=== PATIENT | female | born 1950 | race African-American/Black ===

== ENCOUNTER 2016-08-21 00:36 | Emergency (ER) | payer MEDICARE ==
[~2016-08-21] VITALS: Ht 162.6 cm; Wt 113.4 kg
[2016-08-21 00:50] VITALS: BP 204/84
[2016-08-21] MEDS ORDERED: PRED50TA PO (01:14)
[2016-08-21] MEDS ORDERED: DIPH25CA58 PO (01:14)
--- NOTE | 2016-08-21 01:14 | PHYS DOC ---
Past Medical History Past Medical History: Diabetes-Type I, GERD, High Cholesterol, Hypertension Past Surgical History: Hysterectomy Alcohol Use: None Drug Use: None Adult General Chief Complaint Chief Complaint: INSECT BITE HPI HPI Patient is a 66 year old female who presents here today secondary to a rash to her right face and right upper extremities that she noticed this morning. She reports she went to the pharmacy and got hydrocortisone cream without significant improvement. Patient denies any other symptomatology. Patient has any fevers shakes chills nausea vomiting diarrhea chest patient's breath. Patient reports that the rash itches. No pain. No shortness of breath or wheezing. No difficult breathing. No airway, otherwise. Patient's physical exam is consistent with hives to her right forearm as well as right side of her face. No pustules. Gyri compromise. Lungs are clear. No wheezing rales or rhonchi. No stridor. Review of Systems Review of Systems Constitutional: Denies fever or chills [] Eyes: Denies change in visual acuity, redness, or eye pain [] All other review systems are negative except as documented in history of present illness portion. Allergies Allergies Allergies Coded Allergies Type Severity Reaction Last Updated Verified No Known Drug Allergies 04/17/15 No Physical Exam Physical Exam Constitutional: Well developed, well nourished, no acute distress, non-toxic appearance. [] HENT: Normocephalic, atraumatic, bilateral external ears normal, oropharynx moist, no oral exudates, nose normal. [] Eyes: PERRLA, EOMI, conjunctiva normal, no discharge. [] Neck: Normal range of motion, no tenderness, supple, no stridor. [] Cardiovascular:Heart rate regular rhythm, no murmur [] Lungs & Thorax: Bilateral breath sounds clear to auscultation [] Abdomen: Bowel sounds normal, soft, no tenderness, no masses, no pulsatile masses. [] Skin: above Extremities: No tenderness, no cyanosis, no clubbing, ROM intact, no edema. [] Neurologic: Alert and oriented X 3, normal motor function, normal sensory function, no focal deficits noted. [] Psychologic: Affect normal, judgement normal, mood normal. [] Current Patient Data Vital Signs Vital Signs Date Time Temp Pulse Resp B/P Pulse Ox O2 Delivery O2 Flow Rate FiO2 08/21/16 00:50 98.3 62 20 98 Room Air 98.3 EKG EKG [] Radiology/Procedures Radiology/Procedures [] Course & Med Decision Making Course & Med Decision Making Pertinent Labs and Imaging studies reviewed. (See chart for details) [] Dragon Disclaimer Dragon Disclaimer This electronic medical record was generated, in whole or in part, using a voice recognition dictation system. Departure Departure Impression: Primary Impression: Hives Disposition: HOME, SELF-CARE Condition: IMPROVED Referrals: UNKNOWN PCP NAME (PCP) Patient Instructions: Hives Scripts Prednisone 50 Mg Tablet1 Tab PO DAILY #5 TAB Prov:GOSIA MCGREGOR MD 08/21/16 Diphenhydramine Hcl (Benadryl)25 Mg Capsule2 Cap PO Q6HRS PRN ITCHING #14 CAP Ref 2 Prov:GOSIA MCGREGOR MD 08/21/16 GOSIA MCGREGOR MD Aug 21, 2016 01:14
[2016-08-21] MEDS ORDERED: DIPHENHYDRAMINE 50 MG/ML VIAL IM ONE (01:30)
[2016-08-21] MEDS ORDERED: PREDNISONE 20 MG TABLET PO ONE (01:30)
== END 2016-08-21 01:45 | disposition home or self-care (01) ==
LOC: ER 00:36
DX: L50.9 Urticaria, unspecified (principal); E10.9 Type 1 diabetes mellitus without complications; E78.00 Pure hypercholesterolemia, unspecified; I10 Essential (primary) hypertension
CPT/HCPCS: 96372; 99283; J1200; J7512

== ENCOUNTER 2017-03-21 22:49 | Inpatient (IN) | payer MEDICARE ==
[~2017-03-21] VITALS: Ht 160 cm; Wt 125.3 kg
[~2017-03-21 22:49] MED LIST: DIPH25CA58 PO; PRED50TA PO
[2017-03-21 23:39] LABS: BASO % 1 % (0-3); EOS % 2 % (0-3); HEMATOCRIT 35.9 % (36.0-47.0); HEMOGLOBIN 11.6 g/dL (12.0-15.5); LYMPH # 1.2 x10^3/uL (1.0-4.8); LYMPH % 12 % (24-48); MEAN CORPUSCULAR HEMOGLOBIN 30 pg (25-35); MEAN CORPUSCULAR HGB CONC 32 g/dL (31-37); MEAN CORPUSCULAR VOLUME 92 fL (79-100); MONO % 6 % (0-9); NEUT % 80 % (31-73); PLATELET COUNT 222 x10^3/uL (140-400); RED CELL DISTRIBUTION WIDTH 14.4 % (11.5-14.5); WHITE BLOOD COUNT 9.5 x10^3/uL (4.0-11.0)
[2017-03-21 23:40] LABS: BILIRUBIN,URINE NEGATIVE (NEG); GLUCOSE,URINE NEGATIVE (NEG); NITRITE,URINE NEGATIVE (NEG); PROTEIN,URINE NEGATIVE (NEG-TRACE)
[2017-03-21] MEDS ORDERED: ENALAPRILAT 1.25 MG/ML VIAL. IV ONE (23:45)
[2017-03-21] MEDS ORDERED: IV NORMAL SALINE 1000ML BAG 1,000 ML IV ONE (23:45)
[2017-03-21] MEDS ORDERED: MORPHINE SULFATE 4 MG/ML DISP.SYRIN. IV ONE (23:45)
[2017-03-21] MEDS ORDERED: ONDANSETRON PF 4 MG/2 ML VIAL. IV ONE (23:45)
[2017-03-21 23:51] LABS: BACTERIA,URINE FEW /HPF (0-FEW); SQUAMOUS EPITHELIAL CELL,UR FEW /LPF
[2017-03-21 23:51] LABS: CREATININE 1.1 mg/dL (0.6-1.0); GFR 59.8
[2017-03-21 23:56] LABS: ALBUMIN 3.4 g/dL (3.4-5.0); ALBUMIN/GLOBULIN RATIO 0.7 (1.0-1.7); TOTAL BILIRUBIN 0.2 mg/dL (0.2-1.0); TOTAL PROTEIN 8.4 g/dL (6.4-8.2)
--- NOTE | 2017-03-22 00:20 | RAD ---
CT abdomen and pelvis without contrast: Reason for examination: Severe lower abdominal pain and back pain tonight. Helical images were obtained through the abdomen and pelvis with no intravenous or oral contrast administered. Reconstruction was performed in sagittal and coronal planes. Exposure: One or more of the following individualized dose reduction techniques were utilized for this examination: 1. Automated exposure control 2. Adjustment of the mA and/or kV according to patient size 3. Use of iterative reconstruction technique. The lung bases are clear. The heart size appears to be normal with no pericardial effusion. No abnormality seen at the liver, pancreas, or adrenal glands. There are splenic granuloma. Small calcific densities consistent suggesting gallstones are seen in the gallbladder. The abdominal aorta and inferior vena cava show no acute abnormalities. The kidneys show a nonobstructing calculus at the lower pole of the left kidney. There is no evidence of hydronephrosis or obstructive uropathy. The intestinal tract shows no abnormally dilated loops of bowel or thickened bowel coppola no evidence of diverticulitis or diverticulosis. No abnormality seen at the bladder or vaginal cuff. There are phleboliths in the pelvis. No acute bony abnormalities are present but there are some degenerative changes in the spine. IMPRESSION: Cholelithiasis. Nonobstructing calculus at the lower pole of the left kidney but no evidence of hydronephrosis or obstructive uropathy. Electronically signed by: Betina Menendez MD (03/22/2017 12:17 AM) [facility]
--- NOTE | 2017-03-22 02:34 | PHYS DOC ---
Past Medical History Past Medical History: Arthritis, Diabetes-Type I, GERD, High Cholesterol, Hypertension, Other Additional Past Medical Histor: heart murmur Past Surgical History: Hysterectomy Alcohol Use: None Drug Use: None Adult General Chief Complaint Chief Complaint: ABDOMINAL PAIN HPI HPI Patient is a 66 year old female who presents with complaints of low abdominal pain and low back pain that started today in the afternoon. Patient denies any vomiting, diarrhea, fevers, chills, trauma. Patient also denies vaginal discharge, vaginal bleeding. Denies any dysuria. Patient states she's been feeling bloated. Patient denies any sick contacts, recent changes in medication , recent travel Review of Systems Review of Systems Constitutional: Denies fever or chills [] Eyes: Denies change in visual acuity, redness, or eye pain [] HENT: Denies throat or neck pain Respiratory: Denies cough or shortness of breath [] Cardiovascular: No is pain GI: Deniesnausea, vomiting, bloody stools or diarrhea. Yes to low abdominal pain : Denies dysuria or hematuria or vaginal bleeding or discharge Musculoskeletal: Denies joint pain . Yes to low back pain Integument: Denies rash or skin lesions [] Neurologic: Denies headache, focal weakness or sensory changes [] chintan [] Current Medications Current Medications Current Medications Medications (Trade) Dose Ordered Sig/[facility] Start Time Stop Time Status Last Admin Dose Admin Enalaprilat (Vasotec) 1.25 mg 1X ONCE 03/21/17 23:45 03/21/17 23:46 DC 03/21/17 23:57 1.25 MG Morphine Sulfate 6 mg 1X ONCE 03/21/17 23:45 03/21/17 23:46 DC 03/21/17 23:58 6 MG Ondansetron HCl (Zofran) 4 mg 1X ONCE 03/21/17 23:45 03/21/17 23:46 DC 03/21/17 23:58 4 MG Sodium Chloride 1,000 ml @ 1,000 mls/hr 1X ONCE 03/21/17 23:45 03/22/17 00:44 DC 03/21/17 23:57 1,000 MLS/HR Allergies Allergies Allergies Coded Allergies Type Severity Reaction Last Updated Verified No Known Drug Allergies 04/17/15 No Physical Exam Physical Exam Constitutional: Well developed, well nourished, mild distress, non-toxic appearance. [] HENT: Normocephalic, atraumatic,l, oropharynx moist, no oral exudates, nose normal. [] Eyes: EOMI, conjunctiva normal, no discharge. [] Neck: Normal range of motion, no tenderness, supple, no stridor. The JVD, no LAD Cardiovascular:Heart rate regular rhythm, no murmur, equal pulses, normal perfusion Lungs & Thorax: Bilateral breath sounds clear to auscultation, no tachypnea Abdomen: Bowel sounds normal, soft, no tenderness, no masses, no pulsatile masses. [] Skin: Warm, dry, no erythema, no rash. [] Back: Very mild tenderness to palpation low back, no CVA tenderness. No midline tenderness, no step-offs Extremities: No tenderness, no cyanosis, no clubbing, ROM intact, no edema. [] Neurologic: Alert and oriented X 3, normal motor function, normal sensory function, no focal deficits noted. [] Psychologic: Affect normal, judgement normal, mood normal. [] Current Patient Data Vital Signs Vital Signs Date Time Temp Pulse Resp B/P (MAP) Pulse Ox O2 Delivery O2 Flow Rate FiO2 03/22/17 02:16 58 191/81 (117) 95 03/21/17 23:00 98.5 24 Room Air 98.5 Lab Values Laboratory Tests Test 03/21/17 23:01 03/21/17 23:10 Urine Collection Type Unknown Urine Color Yellow Urine Clarity Clear Urine pH 6.0 Urine Specific [place] 1.025 Urine Protein Negative mg/dL (NEG-TRACE) Urine Glucose (UA) Negative mg/dL (NEG) Urine Ketones (Stick) Negative mg/dL (NEG) Urine Blood Negative (NEG) Urine Nitrite Negative (NEG) Urine Bilirubin Negative (NEG) Urine Urobilinogen Dipstick 1.0 mg/dL (0.2 mg/dL) Urine Leukocyte Esterase Moderate (NEG) Urine RBC 6-10 /HPF (0-2) Urine WBC 5-10 /HPF (0-4) Urine Squamous Epithelial Cells Few /LPF Urine Bacteria Few /HPF (0-FEW) White Blood Count 9.5 x10^3/uL (4.0-11.0) Red Blood Count 3.90 x10^6/uL (3.50-5.40) Hemoglobin 11.6 g/dL (12.0-15.5) L Hematocrit 35.9 % (36.0-47.0) L Mean Corpuscular Volume 92 fL (79-100) Mean Corpuscular Hemoglobin 30 pg (25-35) Mean Corpuscular Hemoglobin Concent 32 g/dL (31-37) Red Cell Distribution Width 14.4 % (11.5-14.5) Platelet Count 222 x10^3/uL (140-400) Neutrophils (%) (Auto) 80 % (31-73) H Lymphocytes (%) (Auto) 12 % (24-48) L Monocytes (%) (Auto) 6 % (0-9) Eosinophils (%) (Auto) 2 % (0-3) Basophils (%) (Auto) 1 % (0-3) Neutrophils # (Auto) 7.6 x10^3uL (1.8-7.7) Lymphocytes # (Auto) 1.2 x10^3/uL (1.0-4.8) Monocytes # (Auto) 0.5 x10^3/uL (0.0-1.1) Eosinophils # (Auto) 0.2 x10^3/uL (0.0-0.7) Basophils # (Auto) 0.0 x10^3/uL (0.0-0.2) Sodium Level 144 mmol/L (136-145) Potassium Level 4.0 mmol/L (3.5-5.1) Chloride Level 106 mmol/L (98-107) Carbon Dioxide Level 29 mmol/L (21-32) Anion Gap 9 (6-14) Blood Urea Nitrogen 24 mg/dL (7-20) H Creatinine 1.1 mg/dL (0.6-1.0) H Estimated GFR (Cockcroft-Gault) 59.8 BUN/Creatinine Ratio 22 (6-20) H Glucose Level 153 mg/dL (70-99) H Calcium Level 9.0 mg/dL (8.5-10.1) Total Bilirubin 0.2 mg/dL (0.2-1.0) Aspartate Amino Transferase (AST) 17 U/L (15-37) Alanine Aminotransferase (ALT) 18 U/L (14-59) Alkaline Phosphatase 109 U/L (46-116) Total Protein 8.4 g/dL (6.4-8.2) H Albumin 3.4 g/dL (3.4-5.0) Albumin/Globulin Ratio 0.7 (1.0-1.7) L Laboratory Tests 03/21/17 23:10 Laboratory Tests 03/21/17 23:10 EKG EKG [] Radiology/Procedures Radiology/Procedures [] Course & Med Decision Making Course & Med Decision Making Pertinent Labs and Imaging studies reviewed. (See chart for details) 0347 pt states she has had some ruq pain in the past. [] Dragon Disclaimer Dragon Disclaimer This electronic medical record was generated, in whole or in part, using a voice recognition dictation system. Departure Departure Impression: Primary Impression: Abdominal pain Additional Impression: Cholecystitis Disposition: ADMITTED INPATIENT Admitting Physician: Taylor Michaud Referrals: UNKNOWN PCP NAME (PCP) Problem Qualifiers Deanna DARLING MD Mar 22, 2017 02:33
--- NOTE | 2017-03-22 03:09 | RAD ---
Abdominal ultrasound right upper quadrant: Reason for examination: Right upper quadrant pain. Abnormal CT. No abnormality seen in the region of the pancreas however somewhat obscured by bowel gas. No abnormality seen at the inferior vena cava. The liver is normal in size at 16.6 cm but shows fatty infiltration with no focal lesions. Gallbladder shows cholelithiasis and sludge and gallbladder wall thickening with the gallbladder wall measuring 4.7 mm in thickness. There is trace of pericholecystic fluid adjacent to the gallbladder. Common bile duct is not distended at 3.8 mm. Right kidney measures 10.6 x 4.9 x 4.6 cm in greatest dimension and shows normal cortical medullary differentiation and no hydronephrosis. IMPRESSION: Cholelithiasis and sludge in gallbladder with thickened wall and some pericholecystic fluid. These findings are consistent with acute cholecystitis. Fatty infiltration in the liver. Electronically signed by: Betina Menendez MD (03/22/2017 3:06 AM) [facility]
[2017-03-22] MEDS ORDERED: ONDANSETRON PF 4 MG/2 ML VIAL. IV PRN ×2 (04:00→11:30)
[2017-03-22] MEDS ORDERED: MORPHINE SULFATE 2 MG/ML DISP.SYRIN. IV PRN (04:00)
[2017-03-22] MEDS ORDERED: PIPERACILLIN/TAZOBACTAM 3.375 GM in IV NORMAL SALINE 50ML 50 ML IV ONE (04:30)
[2017-03-22] MEDS ORDERED: OXYB5TAB7 PO (05:04)
[2017-03-22] MEDS ORDERED: ESOM40CA PO (05:04)
[2017-03-22 05:39] VITALS: BP 161/59
[2017-03-22 07:00] VITALS: BP 147/66
[2017-03-22 11:00] VITALS: BP 151/56
[2017-03-22] MEDS ORDERED: DOCUSATE SODIUM 100 MG CAPSULE. PO PRN (11:30)
[2017-03-22] MEDS: PANTOPRAZOLE 40 MG TABLET.DR. PO SCH (11:30)
[2017-03-22] MEDS ORDERED: traMADol 50 MG TABLET PO PRN (11:30)
[2017-03-22] MEDS: OXYBUTYNIN CHLORIDE 5 MG TABLET PO SCH ×2 (12:00→21:00)
--- NOTE | 2017-03-22 14:21 | PDOC1 ---
History and Physical Date of Admission Date of Admission 03/22/17 Identification/Chief Complaint Chief Complaint abd pain Problems: Source Source: Chart review, Patient History of Present Illness History of Present Illness HPI HPI Patient is a 66 year old female who presents with complaints of low abdominal pain and low back pain since last night. Pt said never had similar pain before and no abd problem before. She started to have whole abd pain, moderate ,since last night, achy, intermittent, also has lower back pain, cannot tell me if the pain is radiating. no N/V, BM ok. no fever, chills, sob, chest pain, urinary problem ER ct SHOWED ACUTE alexis. Past Medical History Cardiovascular: HTN, Hyperlipidemia Endocrine: Diabetes Past Surgical History Past Surgical History: Hysterectomy Family History Family History: Hypertension Social History Smoke: No ALCOHOL: none Drugs: None Current Problem List Problem List Problems Medical Problems: (1) Abdominal pain Status: Acute (2) Cholecystitis Status: Acute Current Medications Current Medications Current Medications Medications (Trade) Dose Ordered Sig/Ling Start Time Stop Time Status Last Admin Dose Admin Acetaminophen (Tylenol) 650 mg PRN Q6HRS PRN 03/22/17 11:30 Docusate Sodium (Colace) 100 mg PRN DAILY PRN 03/22/17 11:30 Enalaprilat (Vasotec) 1.25 mg 1X ONCE 03/21/17 23:45 03/21/17 23:46 DC 03/21/17 23:57 1.25 MG Hydralazine HCl (Apresoline) 10 mg PRN Q4HRS PRN 03/22/17 11:30 Morphine Sulfate 2 mg PRN Q2HR PRN 03/22/17 11:30 Ondansetron HCl (Zofran) 4 mg PRN Q6HRS PRN 03/22/17 11:30 Oxybutynin Chloride (Ditropan) 5 mg BID 03/22/17 12:00 Pantoprazole Sodium (Protonix) 40 mg DAILYAC 03/22/17 11:30 Piperacillin Sod/ Tazobactam Sod 3.375 gm/Sodium Chloride 50 ml @ 100 mls/hr 1X ONCE 03/22/17 04:30 03/22/17 04:59 DC 03/22/17 04:11 100 MLS/HR Sodium Chloride 1,000 ml @ 1,000 mls/hr 1X ONCE 03/21/17 23:45 03/22/17 00:44 DC 03/21/17 23:57 1,000 MLS/HR Tramadol HCl (Ultram) 50 mg PRN Q6HRS PRN 03/22/17 11:30 Allergies Allergies Allergies Coded Allergies Type Severity Reaction Last Updated Verified No Known Drug Allergies 04/17/15 No ROS Review of System CONSTITUTIONAL: No fever or chills EYES: No recent changes SKIN: No rash or itching CARDIOVASCULAR: No chest pain, syncope, palpitations, or edema RESPIRATORY: No SOB or cough GASTROINTESTINAL: No nausea, vomiting or abdominal pain NEUROLOGICAL: No headaches or weakness ENDOCRINE: No cold or heat intolerance GENITOURINARY: No urgency or frequency of urination MUSCULOSKELETAL: No back pain or joint pain LYMPHATICS: No enlarged lymph nodes PSYCHIATRIC: No anxiety or depression Physical Exam Physical Exam GEN.: No apparent distress. Alert and oriented. HEENT: Head is normocephalic, atraumatic NECK: Supple. LUNGS: Clear to auscultation. HEART: RRR, S1, S2 present. Peripheral pulses intact ABDOMEN: Soft, Positive bowel sounds. RUQ and epigastric area mild tenderness. EXTREMITIES: Without any cyanosis. NEUROLOGIC: Normal speech, normal tone PSYCHIATRIC: Normal affect, normal mood. SKIN: No ulcerations Vitals Vitals Vital Signs Date Time Temp Pulse Resp B/P (MAP) Pulse Ox O2 Delivery O2 Flow Rate FiO2 03/22/17 11:00 97.9 55 18 151/56 (87) 96 Room Air 97.9 Labs Labs Laboratory Tests Test 03/21/17 23:01 03/21/17 23:10 03/22/17 07:48 03/22/17 10:32 Urine Collection Type Unknown Urine Color Yellow Urine Clarity Clear Urine pH 6.0 Urine Specific [place] 1.025 Urine Protein Negative mg/dL (NEG-TRACE) Urine Glucose (UA) Negative mg/dL (NEG) Urine Ketones (Stick) Negative mg/dL (NEG) Urine Blood Negative (NEG) Urine Nitrite Negative (NEG) Urine Bilirubin Negative (NEG) Urine Urobilinogen Dipstick 1.0 mg/dL (0.2 mg/dL) Urine Leukocyte Esterase Moderate (NEG) Urine RBC 6-10 /HPF (0-2) Urine WBC 5-10 /HPF (0-4) Urine Squamous Epithelial Cells Few /LPF Urine Bacteria Few /HPF (0-FEW) White Blood Count 9.5 x10^3/uL (4.0-11.0) Red Blood Count 3.90 x10^6/uL (3.50-5.40) Hemoglobin 11.6 g/dL (12.0-15.5) Hematocrit 35.9 % (36.0-47.0) Mean Corpuscular Volume 92 fL (79-100) Mean Corpuscular Hemoglobin 30 pg (25-35) Mean Corpuscular Hemoglobin Concent 32 g/dL (31-37) Red Cell Distribution Width 14.4 % (11.5-14.5) Platelet Count 222 x10^3/uL (140-400) Neutrophils (%) (Auto) 80 % (31-73) Lymphocytes (%) (Auto) 12 % (24-48) Monocytes (%) (Auto) 6 % (0-9) Eosinophils (%) (Auto) 2 % (0-3) Basophils (%) (Auto) 1 % (0-3) Neutrophils # (Auto) 7.6 x10^3uL (1.8-7.7) Lymphocytes # (Auto) 1.2 x10^3/uL (1.0-4.8) Monocytes # (Auto) 0.5 x10^3/uL (0.0-1.1) Eosinophils # (Auto) 0.2 x10^3/uL (0.0-0.7) Basophils # (Auto) 0.0 x10^3/uL (0.0-0.2) Sodium Level 144 mmol/L (136-145) Potassium Level 4.0 mmol/L (3.5-5.1) Chloride Level 106 mmol/L (98-107) Carbon Dioxide Level 29 mmol/L (21-32) Anion Gap 9 (6-14) Blood Urea Nitrogen 24 mg/dL (7-20) Creatinine 1.1 mg/dL (0.6-1.0) Estimated GFR (Cockcroft-Gault) 59.8 BUN/Creatinine Ratio 22 (6-20) Glucose Level 153 mg/dL (70-99) Calcium Level 9.0 mg/dL (8.5-10.1) Total Bilirubin 0.2 mg/dL (0.2-1.0) Aspartate Amino Transf (AST/SGOT) 17 U/L (15-37) Alanine Aminotransferase (ALT/SGPT) 18 U/L (14-59) Alkaline Phosphatase 109 U/L (46-116) Total Protein 8.4 g/dL (6.4-8.2) Albumin 3.4 g/dL (3.4-5.0) Albumin/Globulin Ratio 0.7 (1.0-1.7) Glucose (Fingerstick) 131 mg/dL (70-99) 97 mg/dL (70-99) Laboratory Tests Test 03/21/17 23:01 03/21/17 23:10 03/22/17 07:48 03/22/17 10:32 Urine Collection Type Unknown Urine Color Yellow Urine Clarity Clear Urine pH 6.0 Urine Specific [place] 1.025 Urine Protein Negative mg/dL (NEG-TRACE) Urine Glucose (UA) Negative mg/dL (NEG) Urine Ketones (Stick) Negative mg/dL (NEG) Urine Blood Negative (NEG) Urine Nitrite Negative (NEG) Urine Bilirubin Negative (NEG) Urine Urobilinogen Dipstick 1.0 mg/dL (0.2 mg/dL) Urine Leukocyte Esterase Moderate (NEG) Urine RBC 6-10 /HPF (0-2) Urine WBC 5-10 /HPF (0-4) Urine Squamous Epithelial Cells Few /LPF Urine Bacteria Few /HPF (0-FEW) White Blood Count 9.5 x10^3/uL (4.0-11.0) Red Blood Count 3.90 x10^6/uL (3.50-5.40) Hemoglobin 11.6 g/dL (12.0-15.5) Hematocrit 35.9 % (36.0-47.0) Mean Corpuscular Volume 92 fL (79-100) Mean Corpuscular Hemoglobin 30 pg (25-35) Mean Corpuscular Hemoglobin Concent 32 g/dL (31-37) Red Cell Distribution Width 14.4 % (11.5-14.5) Platelet Count 222 x10^3/uL (140-400) Neutrophils (%) (Auto) 80 % (31-73) Lymphocytes (%) (Auto) 12 % (24-48) Monocytes (%) (Auto) 6 % (0-9) Eosinophils (%) (Auto) 2 % (0-3) Basophils (%) (Auto) 1 % (0-3) Neutrophils # (Auto) 7.6 x10^3uL (1.8-7.7) Lymphocytes # (Auto) 1.2 x10^3/uL (1.0-4.8) Monocytes # (Auto) 0.5 x10^3/uL (0.0-1.1) Eosinophils # (Auto) 0.2 x10^3/uL (0.0-0.7) Basophils # (Auto) 0.0 x10^3/uL (0.0-0.2) Sodium Level 144 mmol/L (136-145) Potassium Level 4.0 mmol/L (3.5-5.1) Chloride Level 106 mmol/L (98-107) Carbon Dioxide Level 29 mmol/L (21-32) Anion Gap 9 (6-14) Blood Urea Nitrogen 24 mg/dL (7-20) Creatinine 1.1 mg/dL (0.6-1.0) Estimated GFR (Cockcroft-Gault) 59.8 BUN/Creatinine Ratio 22 (6-20) Glucose Level 153 mg/dL (70-99) Calcium Level 9.0 mg/dL (8.5-10.1) Total Bilirubin 0.2 mg/dL (0.2-1.0) Aspartate Amino Transf (AST/SGOT) 17 U/L (15-37) Alanine Aminotransferase (ALT/SGPT) 18 U/L (14-59) Alkaline Phosphatase 109 U/L (46-116) Total Protein 8.4 g/dL (6.4-8.2) Albumin 3.4 g/dL (3.4-5.0) Albumin/Globulin Ratio 0.7 (1.0-1.7) Glucose (Fingerstick) 131 mg/dL (70-99) 97 mg/dL (70-99) VTE Prophylaxis Ordered VTE Prophylaxis Devices: Yes VTE Pharmacological Prophylaxi: No Assessment/Plan Assessment/Plan abd pain with acute cholecystitis htn hld dm2 OA gerd heart murmur, possible MR ckd3 plan: fu with sx, may need lap alexis npo for now ivf gi ppx ssi admit 2nights JULIAN CAR MD Mar 22, 2017 14:21
--- NOTE | 2017-03-22 14:22 | PDOC2 ---
CONSULT Date of Consult Date of Consult DATE: 03/22/17 TIME: 14:16 Reason for Consult Reason for Consult: RUQ abd pain, cholecystitis Referring Physician Referring Physician: Farooq Identification/Chief Complaint Chief Complaint RUQ pain Problems: Source Source: Chart review, Patient History of Present Illness Reason for Visit: 66 yo F with c/o RUQ abd pain beginning yesterday. Denies previous episode. Notes pain improved now. Past Medical History Cardiovascular: HTN, Hyperlipidemia, Other (murmur) GI: GERD Endocrine: Diabetes Past Surgical History Past Surgical History: Hysterectomy Family History Family History: No Significant Social History No Current Problem List Problem List Problems Medical Problems: (1) Abdominal pain Status: Acute (2) Cholecystitis Status: Acute Current Medications Current Medications Current Medications Morphine Sulfate 6 mg 1X ONCE IV Last administered on 03/21/17 23:58; Start 03/21/17 at 23:45; Stop 03/21/17 at 23:46; Status DC Ondansetron HCl (Zofran) 4 mg 1X ONCE IV Last administered on 03/21/17 23:58 ; Start 03/21/17 at 23:45; Stop 03/21/17 at 23:46; Status DC Sodium Chloride 1,000 ml @ 1,000 mls/hr 1X ONCE IV Last administered on 23:57; Start 03/21/17 at 23:45; Stop 03/22/17 at 00:44; Status DC Enalaprilat (Vasotec) 1.25 mg 1X ONCE IV Last administered on 03/21/17 23:57 ; Start 03/21/17 at 23:45; Stop 03/21/17 at 23:46; Status DC Piperacillin Sod/ Tazobactam Sod 3.375 gm/Sodium Chloride 50 ml @ 100 mls/hr 1X ONCE IV Last administered on 03/22/17 04:11; Start 03/22/17 at 04:30; Stop 03/22/17 at 04:59; Status DC Ondansetron HCl (Zofran) 4 mg PRN Q8HRS PRN IV NAUSEA/VOMITING Last administered on 03/22/17 04:57; Start 03/22/17 at 04:00; Stop 03/22/17 at 11:34 ; Status DC Morphine Sulfate 2 mg PRN Q2HR PRN IV SEVERE PAIN; Start 03/22/17 at 04:00; Stop 03/22/17 at 11:34; Status DC Oxybutynin Chloride (Ditropan) 5 mg BID PO ; Start 03/22/17 at 12:00 Pantoprazole Sodium (Protonix) 40 mg DAILYAC PO ; Start 03/22/17 at 11:30 Acetaminophen (Tylenol) 650 mg PRN Q6HRS PRN PO FEVER; Start 03/22/17 at 11:30 Ondansetron HCl (Zofran) 4 mg PRN Q6HRS PRN IV NAUSEA/VOMITING; Start 03/22/17 at 11:30 Morphine Sulfate 2 mg PRN Q2HR PRN IV PAIN; Start 03/22/17 at 11:30 Tramadol HCl (Ultram) 50 mg PRN Q6HRS PRN PO PAIN; Start 03/22/17 at 11:30 Hydralazine HCl (Apresoline) 10 mg PRN Q4HRS PRN IVP ELEVATED BP, SEE COMMENTS ; Start 03/22/17 at 11:30 Docusate Sodium (Colace) 100 mg PRN DAILY PRN PO CONSTIPATION; Start 03/22/17 at 11:30 Active Scripts Active Prednisone 50 Mg Tablet 1 Tab PO DAILY Benadryl (Diphenhydramine Hcl) 25 Mg Capsule 2 Cap PO Q6HRS PRN Reported Oxybutynin Chloride 5 Mg Tablet 5 Mg PO BID Nexium Capsule (Esomeprazole Magnesium) 40 Mg Capsule.dr 40 Mg PO DAILYAC Allergies Allergies: Coded Allergies: No Known Drug Allergies (Unverified , 04/17/15) ROS General: YES: Other (light headed and vertigo) Gastrointestinal: Yes Abdominal Pain Physical Exam General: Alert, Cooperative, No acute distress HEENT: Atraumatic, EOMI Lungs: Normal air movement Abdomen: Other (TTP RUQ, obese) Extremities: No clubbing, No cyanosis Neuro: Normal speech, Sensation intact Psych/Mental Status: Mental status NL, Mood NL MUSCULOSKELETAL: No joint tenderness, No deformity Vitals VITALS Vital Signs Date Time Temp Pulse Resp B/P (MAP) Pulse Ox O2 Delivery O2 Flow Rate FiO2 03/22/17 11:00 97.9 55 18 151/56 (87) 96 Room Air 97.9 Labs Labs Laboratory Tests Test 03/21/17 23:01 03/21/17 23:10 03/22/17 07:48 03/22/17 10:32 Urine Collection Type Unknown Urine Color Yellow Urine Clarity Clear Urine pH 6.0 Urine Specific [place] 1.025 Urine Protein Negative mg/dL (NEG-TRACE) Urine Glucose (UA) Negative mg/dL (NEG) Urine Ketones (Stick) Negative mg/dL (NEG) Urine Blood Negative (NEG) Urine Nitrite Negative (NEG) Urine Bilirubin Negative (NEG) Urine Urobilinogen Dipstick 1.0 mg/dL (0.2 mg/dL) Urine Leukocyte Esterase Moderate (NEG) Urine RBC 6-10 /HPF (0-2) Urine WBC 5-10 /HPF (0-4) Urine Squamous Epithelial Cells Few /LPF Urine Bacteria Few /HPF (0-FEW) White Blood Count 9.5 x10^3/uL (4.0-11.0) Red Blood Count 3.90 x10^6/uL (3.50-5.40) Hemoglobin 11.6 g/dL (12.0-15.5) Hematocrit 35.9 % (36.0-47.0) Mean Corpuscular Volume 92 fL (79-100) Mean Corpuscular Hemoglobin 30 pg (25-35) Mean Corpuscular Hemoglobin Concent 32 g/dL (31-37) Red Cell Distribution Width 14.4 % (11.5-14.5) Platelet Count 222 x10^3/uL (140-400) Neutrophils (%) (Auto) 80 % (31-73) Lymphocytes (%) (Auto) 12 % (24-48) Monocytes (%) (Auto) 6 % (0-9) Eosinophils (%) (Auto) 2 % (0-3) Basophils (%) (Auto) 1 % (0-3) Neutrophils # (Auto) 7.6 x10^3uL (1.8-7.7) Lymphocytes # (Auto) 1.2 x10^3/uL (1.0-4.8) Monocytes # (Auto) 0.5 x10^3/uL (0.0-1.1) Eosinophils # (Auto) 0.2 x10^3/uL (0.0-0.7) Basophils # (Auto) 0.0 x10^3/uL (0.0-0.2) Sodium Level 144 mmol/L (136-145) Potassium Level 4.0 mmol/L (3.5-5.1) Chloride Level 106 mmol/L (98-107) Carbon Dioxide Level 29 mmol/L (21-32) Anion Gap 9 (6-14) Blood Urea Nitrogen 24 mg/dL (7-20) Creatinine 1.1 mg/dL (0.6-1.0) Estimated GFR (Cockcroft-Gault) 59.8 BUN/Creatinine Ratio 22 (6-20) Glucose Level 153 mg/dL (70-99) Calcium Level 9.0 mg/dL (8.5-10.1) Total Bilirubin 0.2 mg/dL (0.2-1.0) Aspartate Amino Transf (AST/SGOT) 17 U/L (15-37) Alanine Aminotransferase (ALT/SGPT) 18 U/L (14-59) Alkaline Phosphatase 109 U/L (46-116) Total Protein 8.4 g/dL (6.4-8.2) Albumin 3.4 g/dL (3.4-5.0) Albumin/Globulin Ratio 0.7 (1.0-1.7) Glucose (Fingerstick) 131 mg/dL (70-99) 97 mg/dL (70-99) Laboratory Tests Test 03/21/17 23:01 03/21/17 23:10 03/22/17 07:48 03/22/17 10:32 Urine Collection Type Unknown Urine Color Yellow Urine Clarity Clear Urine pH 6.0 Urine Specific [place] 1.025 Urine Protein Negative mg/dL (NEG-TRACE) Urine Glucose (UA) Negative mg/dL (NEG) Urine Ketones (Stick) Negative mg/dL (NEG) Urine Blood Negative (NEG) Urine Nitrite Negative (NEG) Urine Bilirubin Negative (NEG) Urine Urobilinogen Dipstick 1.0 mg/dL (0.2 mg/dL) Urine Leukocyte Esterase Moderate (NEG) Urine RBC 6-10 /HPF (0-2) Urine WBC 5-10 /HPF (0-4) Urine Squamous Epithelial Cells Few /LPF Urine Bacteria Few /HPF (0-FEW) White Blood Count 9.5 x10^3/uL (4.0-11.0) Red Blood Count 3.90 x10^6/uL (3.50-5.40) Hemoglobin 11.6 g/dL (12.0-15.5) Hematocrit 35.9 % (36.0-47.0) Mean Corpuscular Volume 92 fL (79-100) Mean Corpuscular Hemoglobin 30 pg (25-35) Mean Corpuscular Hemoglobin Concent 32 g/dL (31-37) Red Cell Distribution Width 14.4 % (11.5-14.5) Platelet Count 222 x10^3/uL (140-400) Neutrophils (%) (Auto) 80 % (31-73) Lymphocytes (%) (Auto) 12 % (24-48) Monocytes (%) (Auto) 6 % (0-9) Eosinophils (%) (Auto) 2 % (0-3) Basophils (%) (Auto) 1 % (0-3) Neutrophils # (Auto) 7.6 x10^3uL (1.8-7.7) Lymphocytes # (Auto) 1.2 x10^3/uL (1.0-4.8) Monocytes # (Auto) 0.5 x10^3/uL (0.0-1.1) Eosinophils # (Auto) 0.2 x10^3/uL (0.0-0.7) Basophils # (Auto) 0.0 x10^3/uL (0.0-0.2) Sodium Level 144 mmol/L (136-145) Potassium Level 4.0 mmol/L (3.5-5.1) Chloride Level 106 mmol/L (98-107) Carbon Dioxide Level 29 mmol/L (21-32) Anion Gap 9 (6-14) Blood Urea Nitrogen 24 mg/dL (7-20) Creatinine 1.1 mg/dL (0.6-1.0) Estimated GFR (Cockcroft-Gault) 59.8 BUN/Creatinine Ratio 22 (6-20) Glucose Level 153 mg/dL (70-99) Calcium Level 9.0 mg/dL (8.5-10.1) Total Bilirubin 0.2 mg/dL (0.2-1.0) Aspartate Amino Transf (AST/SGOT) 17 U/L (15-37) Alanine Aminotransferase (ALT/SGPT) 18 U/L (14-59) Alkaline Phosphatase 109 U/L (46-116) Total Protein 8.4 g/dL (6.4-8.2) Albumin 3.4 g/dL (3.4-5.0) Albumin/Globulin Ratio 0.7 (1.0-1.7) Glucose (Fingerstick) 131 mg/dL (70-99) 97 mg/dL (70-99) Images Images CT and US concerning for cholecystitis Assessment/Plan Assessment/Plan Calculous cholecystitis will hydrate today and plan laparoscopic cholecystectomy with cholangiogram in AM R/B/A d/w pt Thanks for consult! RUCHI CHASE MD Mar 22, 2017 14:22
[2017-03-22] MEDS ORDERED: DEXTROSE 50% 25 GM / 50ML DISP.SYRIN. IV PRN (14:30)
[2017-03-22] MEDS: IV 1/2 NORMAL SALINE 1,000 ML IV SCH (15:02)
[2017-03-22 15:03] VITALS: BP 127/38
[2017-03-22] MEDS: INSULIN ASPART 300 UNITS/3 ML INSULN.PEN SQ SCH (17:00)
[2017-03-22 19:00] VITALS: BP 134/48
[2017-03-22 23:00] VITALS: BP 144/49
[2017-03-23] VITALS (14 sets, daily range): BP systolic 119–180; BP diastolic 62–85
[2017-03-23 04:32] LABS: BASO # 0.1 x10^3/uL (0.0-0.2); BASO % 1 % (0-3); EOS % 2 % (0-3); HEMATOCRIT 31.8 % (36.0-47.0); HEMOGLOBIN 10.3 g/dL (12.0-15.5); LYMPH # 1.5 x10^3/uL (1.0-4.8); LYMPH % 18 % (24-48); MEAN CORPUSCULAR HEMOGLOBIN 30 pg (25-35); MEAN CORPUSCULAR HGB CONC 32 g/dL (31-37); MEAN CORPUSCULAR VOLUME 92 fL (79-100); MONO % 9 % (0-9); NEUT % 71 % (31-73); PLATELET COUNT 184 x10^3/uL (140-400); RED BLOOD COUNT 3.45 x10^6/uL (3.50-5.40); RED CELL DISTRIBUTION WIDTH 14.1 % (11.5-14.5); WHITE BLOOD COUNT 8.4 x10^3/uL (4.0-11.0)
[2017-03-23 05:01] LABS: CALCIUM 8.3 mg/dL (8.5-10.1); CREATININE 0.9 mg/dL (0.6-1.0); GFR 75.3; POTASSIUM 3.6 mmol/L (3.5-5.1)
[2017-03-23] MEDS: ACETAMINOPHEN 325 MG TABLET. PO PRN (05:05)
[2017-03-23] MEDS: IV 1/2 NORMAL SALINE 1,000 ML IV SCH ×2 (05:12→17:10)
[2017-03-23] MEDS ORDERED: IOHEXOL 300 MG/ML 50 ML VIAL. ONE (05:56)
[2017-03-23] MEDS ORDERED: BUPIVACAINE-EPI 0.5%-1:200000 50 ML VIAL. ONE (05:56)
[2017-03-23] MEDS ORDERED: SURGICEL HEMOSTAT 2X3 EACH. ONE (05:57)
[2017-03-23] MEDS ORDERED: BISACODYL 10 MG SUPP.RECT. ONE (05:57)
[2017-03-23] MEDS ORDERED: HEPARIN 1,000 UNIT in IV NORMAL SALINE 1,000 ML for SURG PERIOP IRR ONE (06:00)
[2017-03-23] MEDS ORDERED: fentaNYL PF VIAL 100 MCG/2 ML VIAL IV PRN (07:00)
[2017-03-23] MEDS ORDERED: HYDROmorphone 2 MG/ML VIAL IV PRN (07:00)
[2017-03-23] MEDS ORDERED: IV RINGERS,LACTATED 1000ML 1,000 ML IV SCH ×2 (07:00→09:52)
[2017-03-23] MEDS ORDERED: ONDANSETRON PF 4 MG/2 ML VIAL. IV PRN ×2 (07:00→10:00)
[2017-03-23] MEDS ORDERED: LIDOCAINE 1% PF 2 ML VIAL. ID PRN (07:00)
[2017-03-23] MEDS ORDERED: fentaNYL PF VIAL 100 MCG/2 ML VIAL ONE ×2 (07:18→08:26)
[2017-03-23] MEDS ORDERED: PROPOFOL 20 ML IV ONE (07:18)
[2017-03-23] MEDS ORDERED: LIDOCAINE 2% PF Vial for OR 5 ML VIAL. ONE ×2 (07:18→07:20)
[2017-03-23] MEDS ORDERED: ROCURONIUM 100 MG/10 ML VIAL. ONE (07:18)
[2017-03-23] MEDS ORDERED: DEXAMETHASONE SOD PHOS 20 MG/5 ML VIAL. ONE (07:18)
[2017-03-23] MEDS ORDERED: ONDANSETRON PF 4 MG/2 ML VIAL. ONE (07:18)
[2017-03-23] MEDS ORDERED: MIDAZOLAM HCL/PF 2 MG/2 ML VIAL. ONE (07:20)
[2017-03-23] MEDS: PANTOPRAZOLE 40 MG TABLET.DR. PO SCH (07:30)
--- NOTE | 2017-03-23 07:39 | PDOC ---
SURGICAL PROGRESS NOTE Subjective 66 yo F with cholecystitis Feels better today pt seen and reexamined. Consult reviewed and unchanged d/w pt and pt's family R/B/A to lap alexis with gram Vital Signs Vital Signs Date Time Temp Pulse Resp B/P (MAP) Pulse Ox O2 Delivery O2 Flow Rate FiO2 03/23/17 03:00 98.1 55 20 173/62 (99) 98 Room Air 98.1 Labs Laboratory Tests Test 03/21/17 23:01 03/21/17 23:10 03/22/17 07:48 03/22/17 10:32 Urine Collection Type Unknown Urine Color Yellow Urine Clarity Clear Urine pH 6.0 Urine Specific [place] 1.025 Urine Protein Negative mg/dL (NEG-TRACE) Urine Glucose (UA) Negative mg/dL (NEG) Urine Ketones (Stick) Negative mg/dL (NEG) Urine Blood Negative (NEG) Urine Nitrite Negative (NEG) Urine Bilirubin Negative (NEG) Urine Urobilinogen Dipstick 1.0 mg/dL (0.2 mg/dL) Urine Leukocyte Esterase Moderate (NEG) Urine RBC 6-10 /HPF (0-2) Urine WBC 5-10 /HPF (0-4) Urine Squamous Epithelial Cells Few /LPF Urine Bacteria Few /HPF (0-FEW) White Blood Count 9.5 x10^3/uL (4.0-11.0) Red Blood Count 3.90 x10^6/uL (3.50-5.40) Hemoglobin 11.6 g/dL (12.0-15.5) Hematocrit 35.9 % (36.0-47.0) Mean Corpuscular Volume 92 fL (79-100) Mean Corpuscular Hemoglobin 30 pg (25-35) Mean Corpuscular Hemoglobin Concent 32 g/dL (31-37) Red Cell Distribution Width 14.4 % (11.5-14.5) Platelet Count 222 x10^3/uL (140-400) Neutrophils (%) (Auto) 80 % (31-73) Lymphocytes (%) (Auto) 12 % (24-48) Monocytes (%) (Auto) 6 % (0-9) Eosinophils (%) (Auto) 2 % (0-3) Basophils (%) (Auto) 1 % (0-3) Neutrophils # (Auto) 7.6 x10^3uL (1.8-7.7) Lymphocytes # (Auto) 1.2 x10^3/uL (1.0-4.8) Monocytes # (Auto) 0.5 x10^3/uL (0.0-1.1) Eosinophils # (Auto) 0.2 x10^3/uL (0.0-0.7) Basophils # (Auto) 0.0 x10^3/uL (0.0-0.2) Sodium Level 144 mmol/L (136-145) Potassium Level 4.0 mmol/L (3.5-5.1) Chloride Level 106 mmol/L (98-107) Carbon Dioxide Level 29 mmol/L (21-32) Anion Gap 9 (6-14) Blood Urea Nitrogen 24 mg/dL (7-20) Creatinine 1.1 mg/dL (0.6-1.0) Estimated GFR (Cockcroft-Gault) 59.8 BUN/Creatinine Ratio 22 (6-20) Glucose Level 153 mg/dL (70-99) Calcium Level 9.0 mg/dL (8.5-10.1) Total Bilirubin 0.2 mg/dL (0.2-1.0) Aspartate Amino Transf (AST/SGOT) 17 U/L (15-37) Alanine Aminotransferase (ALT/SGPT) 18 U/L (14-59) Alkaline Phosphatase 109 U/L (46-116) Total Protein 8.4 g/dL (6.4-8.2) Albumin 3.4 g/dL (3.4-5.0) Albumin/Globulin Ratio 0.7 (1.0-1.7) Glucose (Fingerstick) 131 mg/dL (70-99) 97 mg/dL (70-99) Test 03/22/17 16:18 03/23/17 04:08 03/23/17 07:07 Glucose (Fingerstick) 95 mg/dL (70-99) 84 mg/dL (70-99) White Blood Count 8.4 x10^3/uL (4.0-11.0) Red Blood Count 3.45 x10^6/uL (3.50-5.40) Hemoglobin 10.3 g/dL (12.0-15.5) Hematocrit 31.8 % (36.0-47.0) Mean Corpuscular Volume 92 fL (79-100) Mean Corpuscular Hemoglobin 30 pg (25-35) Mean Corpuscular Hemoglobin Concent 32 g/dL (31-37) Red Cell Distribution Width 14.1 % (11.5-14.5) Platelet Count 184 x10^3/uL (140-400) Neutrophils (%) (Auto) 71 % (31-73) Lymphocytes (%) (Auto) 18 % (24-48) Monocytes (%) (Auto) 9 % (0-9) Eosinophils (%) (Auto) 2 % (0-3) Basophils (%) (Auto) 1 % (0-3) Neutrophils # (Auto) 6.0 x10^3uL (1.8-7.7) Lymphocytes # (Auto) 1.5 x10^3/uL (1.0-4.8) Monocytes # (Auto) 0.7 x10^3/uL (0.0-1.1) Eosinophils # (Auto) 0.2 x10^3/uL (0.0-0.7) Basophils # (Auto) 0.1 x10^3/uL (0.0-0.2) Sodium Level 141 mmol/L (136-145) Potassium Level 3.6 mmol/L (3.5-5.1) Chloride Level 107 mmol/L (98-107) Carbon Dioxide Level 29 mmol/L (21-32) Anion Gap 5 (6-14) Blood Urea Nitrogen 13 mg/dL (7-20) Creatinine 0.9 mg/dL (0.6-1.0) Estimated GFR (Cockcroft-Gault) 75.3 Glucose Level 92 mg/dL (70-99) Calcium Level 8.3 mg/dL (8.5-10.1) Laboratory Tests Test 03/22/17 07:48 03/22/17 10:32 03/22/17 16:18 03/23/17 04:08 Glucose (Fingerstick) 131 mg/dL (70-99) 97 mg/dL (70-99) 95 mg/dL (70-99) White Blood Count 8.4 x10^3/uL (4.0-11.0) Red Blood Count 3.45 x10^6/uL (3.50-5.40) Hemoglobin 10.3 g/dL (12.0-15.5) Hematocrit 31.8 % (36.0-47.0) Mean Corpuscular Volume 92 fL (79-100) Mean Corpuscular Hemoglobin 30 pg (25-35) Mean Corpuscular Hemoglobin Concent 32 g/dL (31-37) Red Cell Distribution Width 14.1 % (11.5-14.5) Platelet Count 184 x10^3/uL (140-400) Neutrophils (%) (Auto) 71 % (31-73) Lymphocytes (%) (Auto) 18 % (24-48) Monocytes (%) (Auto) 9 % (0-9) Eosinophils (%) (Auto) 2 % (0-3) Basophils (%) (Auto) 1 % (0-3) Neutrophils # (Auto) 6.0 x10^3uL (1.8-7.7) Lymphocytes # (Auto) 1.5 x10^3/uL (1.0-4.8) Monocytes # (Auto) 0.7 x10^3/uL (0.0-1.1) Eosinophils # (Auto) 0.2 x10^3/uL (0.0-0.7) Basophils # (Auto) 0.1 x10^3/uL (0.0-0.2) Sodium Level 141 mmol/L (136-145) Potassium Level 3.6 mmol/L (3.5-5.1) Chloride Level 107 mmol/L (98-107) Carbon Dioxide Level 29 mmol/L (21-32) Anion Gap 5 (6-14) Blood Urea Nitrogen 13 mg/dL (7-20) Creatinine 0.9 mg/dL (0.6-1.0) Estimated GFR (Cockcroft-Gault) 75.3 Glucose Level 92 mg/dL (70-99) Calcium Level 8.3 mg/dL (8.5-10.1) Test 03/23/17 07:07 Glucose (Fingerstick) 84 mg/dL (70-99) Problem List Problems Medical Problems: (1) Abdominal pain Status: Acute (2) Cholecystitis Status: Acute Problems: RUCHI CHASE MD Mar 23, 2017 07:39
[2017-03-23] MEDS: INSULIN ASPART 300 UNITS/3 ML INSULN.PEN SQ SCH ×3 (07:58→17:00)
[2017-03-23] MEDS ORDERED: DESFLURANE 61 TO 120 MINUTES IH ONE (08:21)
[2017-03-23] MEDS ORDERED: DESFLURANE 31 TO 60 MINUTES IH ONE (08:21)
[2017-03-23] MEDS ORDERED: NEOSTIGMINE METHYLSULFATE 5 MG/5 ML SYRINGE. ONE (08:28)
[2017-03-23] MEDS ORDERED: GLYCOPYRROLATE 1 MG/5 ML VIAL. ONE (08:28)
--- NOTE | 2017-03-23 08:28 | RAD ---
Intraoperative cholangiogram, 2 views, 03/23/2017: History: Cholecystectomy 2 spot films from surgery are presented for review. Contrast has been injected into the cystic duct remnant. 0.16 minutes of fluoroscopy time were utilized. The common duct is of normal caliber. There is good flow of contrast into the duodenum. No filling defect is seen in the common duct to suggest a retained calculus. The incompletely opacified intrahepatic ducts are unremarkable. No contrast extravasation is seen. IMPRESSION: No significant abnormality is detected.
[2017-03-23] MEDS: fentaNYL PF VIAL 100 MCG/2 ML VIAL IV PRN ×2 (08:57→09:30)
[2017-03-23] MEDS: OXYBUTYNIN CHLORIDE 5 MG TABLET PO SCH ×2 (09:00→20:31)
[2017-03-23] MEDS: PROCHLORPERAZINE 10 MG/2 ML VIAL. IV PRN ×2 (09:06→09:29)
[2017-03-23] MEDS ORDERED: ALBUTEROL SULFATE 2.5 MG/3 ML NEBU. ONE (09:24)
[2017-03-23] MEDS ORDERED: ALBUTEROL SULFATE 2.5 MG/3 ML NEBU. NEB ONE (09:30)
[2017-03-23] MEDS: MORPHINE SULFATE 4 MG/ML DISP.SYRIN. IV PRN ×8 (09:43→20:31)
[2017-03-23] MEDS ORDERED: 0.9 % SODIUM CHLORIDE 10 ML DISP.SYRIN. IV PRN (10:00)
[2017-03-23] MEDS ORDERED: HYDROcodone/APAP 5/325MG 1 TAB TABLET PO PRN (10:00)
[2017-03-23] MEDS ORDERED: DEXTROSE 50% 25 GM / 50ML DISP.SYRIN. IV PRN (10:00)
--- NOTE | 2017-03-23 10:07 | PDOC4 ---
OPERATIVE NOTE Date: Date: Mar 23, 2017 Pre-Op Diagnosis: Calculous cholecystitis Post-Op Diagnosis: same Procedure Performed: Laparoscopic cholecystectomy with cholangiogram Surgeon: Anjum Chase Anesthesia Type: GETA plus 0.5% marcaine Blood Loss: 50 Specimans Obtained: gallbladder Findings: chronic adhesions to the gallbladder, normal appearing cholangiogram Complications: none Operative Note: After obtaining informed consent, patient was taken to the OR, induced under GETA, and prepped in the usual fashion. 5 mm ports placed right upper quadrant and supraumbilical area, with a 11 port placed epigastrium, all under laparoscopic guidance. Patient is morbidly obese, making the procedure difficult throughout. Benign appearing adhesions in pelvis, consistent with surgical history. Liver fatty in nature. No evidence of trocar injury. Gallbladder with chronic adhesions and indurated. Adhesions taken down using sharp dissection. Circumferential dissection made of the cystic duct and critical view obtained. Clips placed on cystic artery. Cholangiogram obtained which was normal in appearance. Cystic duct stump ligated with hemolok and clip. Gallbladder taken off fossa using cautery, delivered via a endocatch bag , and sent to pathology. Copious irrigation and no evidence of bleeding or bile leak. Ports removed. Fascia repaired with 0 vicryl and skin repaired with 4 0 monocryl. Dressings applied. All counts were correct. No immediate complications. Sent to PACU in stable condition. ANJUM CHASE MD Mar 23, 2017 10:07
[2017-03-23] MEDS ORDERED: PHENOL ORAL SPRAY 177ML BOTTLE. PO PRN (11:45)
[2017-03-23] MEDS ORDERED: ALBUTEROL SULFATE 2.5 MG/3 ML NEBU. NEB PRN ×2 (11:45→12:45)
[2017-03-23] MEDS: IPRATRPIUM/ALBUTEROL 0.5/2.5MG 3 ML NEBU. NEB SCH ×2 (12:03→19:53)
[2017-03-23] MEDS ORDERED: FLU VACC QS2017-18 (36MOS+)/PF 0.5 ML SYRINGE. VAX IM ONE (12:30)
--- NOTE | 2017-03-23 12:37 | PDOC ---
PROGRESS NOTES Chief Complaint Chief Complaint acute cholecystitis s/p lap cholecystectomy 03/23 htn hld dm2 OA gerd heart murmur, possible MR ckd3 plan: fu with sx, sx today npo for now, fu with sx for diet ivf gi ppx ssi possible COPD? add duoneb , albuterol prn. check CXR History of Present Illness History of Present Illness ROS: no fever, chills, sob or chest pain sx today post sx, feels sore throat and some sob Vitals Vitals Vital Signs Date Time Temp Pulse Resp B/P (MAP) Pulse Ox O2 Delivery O2 Flow Rate FiO2 03/23/17 12:07 98 Nasal Cannula 4.0 03/23/17 11:30 75 18 163/69 (100) 03/23/17 11:00 96.3 96.3 Physical Exam General: Alert, Cooperative, No acute distress Heart: Regular rate, Normal S1, Normal S2 Lungs: Clear Abdomen: Soft, Other (TTP RUQ, obese) Extremities: No clubbing, No cyanosis Labs LABS Laboratory Tests Test 03/22/17 16:18 03/23/17 04:08 03/23/17 07:07 03/23/17 09:03 Glucose (Fingerstick) 95 mg/dL (70-99) 84 mg/dL (70-99) 154 mg/dL (70-99) White Blood Count 8.4 x10^3/uL (4.0-11.0) Red Blood Count 3.45 x10^6/uL (3.50-5.40) Hemoglobin 10.3 g/dL (12.0-15.5) Hematocrit 31.8 % (36.0-47.0) Mean Corpuscular Volume 92 fL (79-100) Mean Corpuscular Hemoglobin 30 pg (25-35) Mean Corpuscular Hemoglobin Concent 32 g/dL (31-37) Red Cell Distribution Width 14.1 % (11.5-14.5) Platelet Count 184 x10^3/uL (140-400) Neutrophils (%) (Auto) 71 % (31-73) Lymphocytes (%) (Auto) 18 % (24-48) Monocytes (%) (Auto) 9 % (0-9) Eosinophils (%) (Auto) 2 % (0-3) Basophils (%) (Auto) 1 % (0-3) Neutrophils # (Auto) 6.0 x10^3uL (1.8-7.7) Lymphocytes # (Auto) 1.5 x10^3/uL (1.0-4.8) Monocytes # (Auto) 0.7 x10^3/uL (0.0-1.1) Eosinophils # (Auto) 0.2 x10^3/uL (0.0-0.7) Basophils # (Auto) 0.1 x10^3/uL (0.0-0.2) Sodium Level 141 mmol/L (136-145) Potassium Level 3.6 mmol/L (3.5-5.1) Chloride Level 107 mmol/L (98-107) Carbon Dioxide Level 29 mmol/L (21-32) Anion Gap 5 (6-14) Blood Urea Nitrogen 13 mg/dL (7-20) Creatinine 0.9 mg/dL (0.6-1.0) Estimated GFR (Cockcroft-Gault) 75.3 Glucose Level 92 mg/dL (70-99) Calcium Level 8.3 mg/dL (8.5-10.1) Assessment and Plan Assessmemt and Plan Problems Medical Problems: (1) Abdominal pain Status: Acute (2) Cholecystitis Status: Acute Problems: Comment Review of Relevant I have reviewed the following items martínez (where applicable) has been applied. Labs Laboratory Tests Test 03/21/17 23:01 03/21/17 23:10 03/22/17 07:48 03/22/17 10:32 Urine Collection Type Unknown Urine Color Yellow Urine Clarity Clear Urine pH 6.0 Urine Specific [place] 1.025 Urine Protein Negative mg/dL (NEG-TRACE) Urine Glucose (UA) Negative mg/dL (NEG) Urine Ketones (Stick) Negative mg/dL (NEG) Urine Blood Negative (NEG) Urine Nitrite Negative (NEG) Urine Bilirubin Negative (NEG) Urine Urobilinogen Dipstick 1.0 mg/dL (0.2 mg/dL) Urine Leukocyte Esterase Moderate (NEG) Urine RBC 6-10 /HPF (0-2) Urine WBC 5-10 /HPF (0-4) Urine Squamous Epithelial Cells Few /LPF Urine Bacteria Few /HPF (0-FEW) White Blood Count 9.5 x10^3/uL (4.0-11.0) Red Blood Count 3.90 x10^6/uL (3.50-5.40) Hemoglobin 11.6 g/dL (12.0-15.5) Hematocrit 35.9 % (36.0-47.0) Mean Corpuscular Volume 92 fL (79-100) Mean Corpuscular Hemoglobin 30 pg (25-35) Mean Corpuscular Hemoglobin Concent 32 g/dL (31-37) Red Cell Distribution Width 14.4 % (11.5-14.5) Platelet Count 222 x10^3/uL (140-400) Neutrophils (%) (Auto) 80 % (31-73) Lymphocytes (%) (Auto) 12 % (24-48) Monocytes (%) (Auto) 6 % (0-9) Eosinophils (%) (Auto) 2 % (0-3) Basophils (%) (Auto) 1 % (0-3) Neutrophils # (Auto) 7.6 x10^3uL (1.8-7.7) Lymphocytes # (Auto) 1.2 x10^3/uL (1.0-4.8) Monocytes # (Auto) 0.5 x10^3/uL (0.0-1.1) Eosinophils # (Auto) 0.2 x10^3/uL (0.0-0.7) Basophils # (Auto) 0.0 x10^3/uL (0.0-0.2) Sodium Level 144 mmol/L (136-145) Potassium Level 4.0 mmol/L (3.5-5.1) Chloride Level 106 mmol/L (98-107) Carbon Dioxide Level 29 mmol/L (21-32) Anion Gap 9 (6-14) Blood Urea Nitrogen 24 mg/dL (7-20) Creatinine 1.1 mg/dL (0.6-1.0) Estimated GFR (Cockcroft-Gault) 59.8 BUN/Creatinine Ratio 22 (6-20) Glucose Level 153 mg/dL (70-99) Calcium Level 9.0 mg/dL (8.5-10.1) Total Bilirubin 0.2 mg/dL (0.2-1.0) Aspartate Amino Transf (AST/SGOT) 17 U/L (15-37) Alanine Aminotransferase (ALT/SGPT) 18 U/L (14-59) Alkaline Phosphatase 109 U/L (46-116) Total Protein 8.4 g/dL (6.4-8.2) Albumin 3.4 g/dL (3.4-5.0) Albumin/Globulin Ratio 0.7 (1.0-1.7) Glucose (Fingerstick) 131 mg/dL (70-99) 97 mg/dL (70-99) Test 03/22/17 16:18 03/23/17 04:08 03/23/17 07:07 03/23/17 09:03 Glucose (Fingerstick) 95 mg/dL (70-99) 84 mg/dL (70-99) 154 mg/dL (70-99) White Blood Count 8.4 x10^3/uL (4.0-11.0) Red Blood Count 3.45 x10^6/uL (3.50-5.40) Hemoglobin 10.3 g/dL (12.0-15.5) Hematocrit 31.8 % (36.0-47.0) Mean Corpuscular Volume 92 fL (79-100) Mean Corpuscular Hemoglobin 30 pg (25-35) Mean Corpuscular Hemoglobin Concent 32 g/dL (31-37) Red Cell Distribution Width 14.1 % (11.5-14.5) Platelet Count 184 x10^3/uL (140-400) Neutrophils (%) (Auto) 71 % (31-73) Lymphocytes (%) (Auto) 18 % (24-48) Monocytes (%) (Auto) 9 % (0-9) Eosinophils (%) (Auto) 2 % (0-3) Basophils (%) (Auto) 1 % (0-3) Neutrophils # (Auto) 6.0 x10^3uL (1.8-7.7) Lymphocytes # (Auto) 1.5 x10^3/uL (1.0-4.8) Monocytes # (Auto) 0.7 x10^3/uL (0.0-1.1) Eosinophils # (Auto) 0.2 x10^3/uL (0.0-0.7) Basophils # (Auto) 0.1 x10^3/uL (0.0-0.2) Sodium Level 141 mmol/L (136-145) Potassium Level 3.6 mmol/L (3.5-5.1) Chloride Level 107 mmol/L (98-107) Carbon Dioxide Level 29 mmol/L (21-32) Anion Gap 5 (6-14) Blood Urea Nitrogen 13 mg/dL (7-20) Creatinine 0.9 mg/dL (0.6-1.0) Estimated GFR (Cockcroft-Gault) 75.3 Glucose Level 92 mg/dL (70-99) Calcium Level 8.3 mg/dL (8.5-10.1) Laboratory Tests Test 03/22/17 16:18 03/23/17 04:08 03/23/17 07:07 03/23/17 09:03 Glucose (Fingerstick) 95 mg/dL (70-99) 84 mg/dL (70-99) 154 mg/dL (70-99) White Blood Count 8.4 x10^3/uL (4.0-11.0) Red Blood Count 3.45 x10^6/uL (3.50-5.40) Hemoglobin 10.3 g/dL (12.0-15.5) Hematocrit 31.8 % (36.0-47.0) Mean Corpuscular Volume 92 fL (79-100) Mean Corpuscular Hemoglobin 30 pg (25-35) Mean Corpuscular Hemoglobin Concent 32 g/dL (31-37) Red Cell Distribution Width 14.1 % (11.5-14.5) Platelet Count 184 x10^3/uL (140-400) Neutrophils (%) (Auto) 71 % (31-73) Lymphocytes (%) (Auto) 18 % (24-48) Monocytes (%) (Auto) 9 % (0-9) Eosinophils (%) (Auto) 2 % (0-3) Basophils (%) (Auto) 1 % (0-3) Neutrophils # (Auto) 6.0 x10^3uL (1.8-7.7) Lymphocytes # (Auto) 1.5 x10^3/uL (1.0-4.8) Monocytes # (Auto) 0.7 x10^3/uL (0.0-1.1) Eosinophils # (Auto) 0.2 x10^3/uL (0.0-0.7) Basophils # (Auto) 0.1 x10^3/uL (0.0-0.2) Sodium Level 141 mmol/L (136-145) Potassium Level 3.6 mmol/L (3.5-5.1) Chloride Level 107 mmol/L (98-107) Carbon Dioxide Level 29 mmol/L (21-32) Anion Gap 5 (6-14) Blood Urea Nitrogen 13 mg/dL (7-20) Creatinine 0.9 mg/dL (0.6-1.0) Estimated GFR (Cockcroft-Gault) 75.3 Glucose Level 92 mg/dL (70-99) Calcium Level 8.3 mg/dL (8.5-10.1) Medications Current Medications Morphine Sulfate 6 mg 1X ONCE IV Last administered on 03/21/17 23:58; Start 03/21/17 at 23:45; Stop 03/21/17 at 23:46; Status DC Ondansetron HCl (Zofran) 4 mg 1X ONCE IV Last administered on 03/21/17 23:58 ; Start 03/21/17 at 23:45; Stop 03/21/17 at 23:46; Status DC Sodium Chloride 1,000 ml @ 1,000 mls/hr 1X ONCE IV Last administered on 23:57; Start 03/21/17 at 23:45; Stop 03/22/17 at 00:44; Status DC Enalaprilat (Vasotec) 1.25 mg 1X ONCE IV Last administered on 03/21/17 23:57 ; Start 03/21/17 at 23:45; Stop 03/21/17 at 23:46; Status DC Piperacillin Sod/ Tazobactam Sod 3.375 gm/Sodium Chloride 50 ml @ 100 mls/hr 1X ONCE IV Last administered on 03/22/17 04:11; Start 03/22/17 at 04:30; Stop 03/22/17 at 04:59; Status DC Ondansetron HCl (Zofran) 4 mg PRN Q8HRS PRN IV NAUSEA/VOMITING Last administered on 03/22/17 04:57; Start 03/22/17 at 04:00; Stop 03/22/17 at 11:34 ; Status DC Morphine Sulfate 2 mg PRN Q2HR PRN IV SEVERE PAIN; Start 03/22/17 at 04:00; Stop 03/22/17 at 11:34; Status DC Oxybutynin Chloride (Ditropan) 5 mg BID PO ; Start 03/22/17 at 12:00 Pantoprazole Sodium (Protonix) 40 mg DAILYAC PO ; Start 03/22/17 at 11:30 Acetaminophen (Tylenol) 650 mg PRN Q6HRS PRN PO FEVER Last administered on 03/23 05:05; Start 03/22/17 at 11:30 Ondansetron HCl (Zofran) 4 mg PRN Q6HRS PRN IV NAUSEA/VOMITING; Start 03/22/17 at 11:30; Stop 03/23/17 at 09:59; Status DC Morphine Sulfate 2 mg PRN Q2HR PRN IV PAIN; Start 03/22/17 at 11:30 Tramadol HCl (Ultram) 50 mg PRN Q6HRS PRN PO PAIN; Start 03/22/17 at 11:30 Hydralazine HCl (Apresoline) 10 mg PRN Q4HRS PRN IVP ELEVATED BP, SEE COMMENTS ; Start 03/22/17 at 11:30 Docusate Sodium (Colace) 100 mg PRN DAILY PRN PO CONSTIPATION; Start 03/22/17 at 11:30 Sodium Chloride 1,000 ml @ 75 mls/hr [id number] IV Last administered on 05:12; Start 03/22/17 at 14:30 Insulin Aspart (NovoLOG) 0-9 UNITS TIDWMEALS SQ ; Start 03/22/17 at 17:00 Dextrose (Dextrose 50%-Water Syringe) 12.5 gm PRN Q15MIN PRN IV SEE COMMENTS; Start 03/22/17 at 14:30 Cefazolin Sodium/ Dextrose 50 ml @ 100 mls/hr 1X PREOP IV Last administered on 03/23/17 08:25; Start 03/23/17 at 07:00 Ondansetron HCl (Zofran) 4 mg PRN Q6HRS PRN IV NAUSEA/VOMITING; Start 03/23/17 at 07:00; Stop 03/23/17 at 23:00 Fentanyl Citrate (Fentanyl 2ml Vial) 25 mcg PRN Q5MIN PRN IV MILD PAIN; Start 03/23/17 at 07:00; Stop 03/23/17 at 23:00 Fentanyl Citrate (Fentanyl 2ml Vial) 50 mcg PRN Q5MIN PRN IV MODERATE PAIN Last administered on 03/23/17 09:30; Start 03/23/17 at 07:00; Stop 03/23/17 at 23:00 Morphine Sulfate 1 mg PRN Q10MIN PRN IV SEVERE PAIN Last administered on 10:16; Start 03/23/17 at 07:00; Stop 03/23/17 at 23:00 Ringer's Solution 1,000 ml @ 0 mls/hr Q0M IV ; Start 03/23/17 at 07:00; Stop 03/23/17 at 18:59 Lidocaine HCl (Xylocaine-Mpf 1% Vial) 2 ml PRN 1X PRN ID PRIOR TO IV START; Start 03/23/17 at 07:00; Stop 03/23/17 at 23:00 Hydromorphone HCl (Dilaudid) 0.5 mg PRN Q10MIN PRN IV SEV PAIN, Second choice; Start 03/23/17 at 07:00; Stop 03/23/17 at 23:00 Prochlorperazine Edisylate (Compazine) 5 mg PACU PRN PRN IV NAUSEA, MRX1 Last administered on 03/23/17 09:29; Start 03/23/17 at 07:00; Stop 03/23/17 at 23:00 Iohexol (Omnipaque 300 Mg/ml) 50 ml STK-MED ONCE .ROUTE Last administered on 08:21; Start 03/23/17 at 05:56; Stop 03/23/17 at 06:57; Status DC Bupivacaine HCl/ Epinephrine Bitart (Marcaine-Epi 0.5%-[id number]) 50 ml STK-MED ONCE .ROUTE Last administered on 03/23/17 08:20; Start 03/23/17 at 05:56; Stop 03/23/17 at 06:57; Status DC Cellulose 1 each STK-MED ONCE .ROUTE ; Start 03/23/17 at 05:57; Stop 03/23/17 at 06:57; Status DC Bisacodyl (Dulcolax Supp) 10 mg STK-MED ONCE .ROUTE Last administered on 08:35; Start 03/23/17 at 05:57; Stop 03/23/17 at 06:57; Status DC Propofol 20 ml @ As Directed STK-MED ONCE IV ; Start 03/23/17 at 07:18; Stop at 07:19; Status DC Dexamethasone Sodium Phosphate (Decadron) 20 mg STK-MED ONCE .ROUTE ; Start 03/23/17 at 07:18; Stop 03/23/17 at 07:19; Status DC Lidocaine HCl (Lidocaine Pf 2% Vial) 5 ml STK-MED ONCE .ROUTE ; Start 03/23/17 at 07:18; Stop 03/23/17 at 07:19; Status DC Ondansetron HCl (Zofran) 4 mg STK-MED ONCE .ROUTE ; Start 03/23/17 at 07:18; Stop 03/23/17 at 07:19; Status DC Rocuronium Hobbs (Zemuron) 100 mg STK-MED ONCE .ROUTE ; Start 03/23/17 at 07: 18; Stop 03/23/17 at 07:19; Status DC Fentanyl Citrate (Fentanyl 2ml Vial) 100 mcg STK-MED ONCE .ROUTE ; Start at 07:18; Stop 03/23/17 at 07:19; Status DC Lidocaine HCl (Lidocaine Pf 2% Vial) 5 ml STK-MED ONCE .ROUTE ; Start 03/23/17 at 07:20; Stop 03/23/17 at 07:21; Status DC Midazolam HCl (Versed) 2 mg STK-MED ONCE .ROUTE ; Start 03/23/17 at 07:20; Stop 03/23/17 at 07:21; Status DC Heparin Sodium (Porcine) 1000 unit/Sodium Chloride 1,001 ml @ 1,001 mls/hr 1X PERIOP ONCE IRR Last administered on 03/23/17t 08:21; Start 03/23/17 at 06:00 ; Stop 03/23/17 at 07:59; Status DC Desflurane (Suprane) 30 ml STK-MED ONCE IH ; Start 03/23/17 at 08:21; Stop 03/23 at 08:22; Status DC Desflurane (Suprane) 60 ml STK-MED ONCE IH ; Start 03/23/17 at 08:21; Stop 03/23 at 08:22; Status DC Fentanyl Citrate (Fentanyl 2ml Vial) 100 mcg STK-MED ONCE .ROUTE ; Start at 08:26; Stop 03/23/17 at 08:27; Status DC Neostigmine Methylsulfate 5 mg STK-MED ONCE .ROUTE ; Start 03/23/17 at 08:28; Stop 03/23/17 at 08:29; Status DC Glycopyrrolate (Robinul) 1 mg STK-MED ONCE .ROUTE ; Start 03/23/17 at 08:28; Stop 03/23/17 at 08:29; Status DC Albuterol Sulfate (Ventolin Neb Soln) 2.5 mg STK-MED ONCE .ROUTE ; Start at 09:24; Stop 03/23/17 at 09:25; Status DC Albuterol Sulfate (Ventolin Neb Soln) 2.5 mg 1X ONCE NEB Last administered on 03/23/17t 09:29; Start 03/23/17 at 09:30; Stop 03/23/17 at 09:31; Status DC Enoxaparin Sodium (Lovenox 40mg Syringe) 40 mg Q24H SQ ; Start 03/24/17 at 07:00 Sodium Chloride (Normal Saline Flush) 3 ml QSHIFT PRN IV AFTER MEDS AND BLOOD DRAWS; Start 03/23/17 at 10:00 Ringer's Solution 1,000 ml @ 100 mls/hr Q10H IV ; Start 03/23/17 at 09:52 Dextrose (Dextrose 50%-Water Syringe) 12.5 gm PRN Q15MIN PRN IV SEE COMMENTS; Start 03/23/17 at 10:00 Acetaminophen/ Hydrocodone Bitart (Lortab 5/325) 1 tab PRN Q4HRS PRN PO MILD PAIN; Start 03/23/17 at 10:00 Docusate Sodium (Colace) 100 mg BID PO ; Start 03/23/17 at 21:00 Ondansetron HCl (Zofran) 4 mg PRN Q6HRS PRN IV NAUESA, 1ST CHOICE; Start at 10:00 Influenza Virus Vaccine Quadrival (Fluarix Quad [id number] Syringe) 0.5 ml ONCE ONCE VAX IM ; Start 03/23/17 at 12:30; Stop 03/23/17 at 12:31; Status DC Albuterol/ Ipratropium (Duoneb) 3 ml RTQID NEB Last administered on 03/23/17t 12:03; Start 03/23/17 at 12:00 Albuterol Sulfate (Ventolin Neb Soln) 2.5 mg PRN Q6HRS PRN NEB SHORTNESS OF BREATH; Start 03/23/17 at 11:45 Throat Lozenges (Chloraseptic) 1 spray PRN Q2HR PRN PO SORE THROAT; Start 03/23 at 11:45 Active Scripts Active Prednisone 50 Mg Tablet 1 Tab PO DAILY Benadryl (Diphenhydramine Hcl) 25 Mg Capsule 2 Cap PO Q6HRS PRN Reported Oxybutynin Chloride 5 Mg Tablet 5 Mg PO BID Nexium Capsule (Esomeprazole Magnesium) 40 Mg Capsule.dr 40 Mg PO DAILYAC Vitals/I & O Vital Sign - Last 24 Hours 03/22/17 03/22/17 03/22/17 03/22/17 15:03 19:00 20:00 23:00 Temp 97.9 98.2 98.1 97.9 98.2 98.1 Pulse 62 52 61 Resp 18 19 18 B/P (MAP) 127/38 (67) 134/48 (76) 144/49 (80) Pulse Ox 96 97 100 O2 Delivery Room Air Room Air Room Air Room Air 03/23/17 03/23/17 03/23/17 03/23/17 03:00 06:56 08:50 08:57 Temp 98.1 98.4 98.5 98.1 98.4 98.5 Pulse 55 55 70 Resp 20 20 16 16 B/P (MAP) 173/62 (99) 184/76 181/76 Pulse Ox 98 98 95 94 O2 Delivery Room Air Room Air Simple Mask Simple Mask O2 Flow Rate 10 10.0 03/23/17 03/23/17 03/23/17 03/23/17 09:05 09:16 09:20 09:30 Pulse 73 70 Resp 18 18 18 B/P (MAP) 157/69 154/97 Pulse Ox 91 95 99 O2 Delivery Nasal Cannula Nasal Cannula Nasal Cannula Simple Mask O2 Flow Rate 3 4 3 10.0 03/23/17 03/23/17 03/23/17 03/23/17 09:35 09:43 09:50 09:53 Pulse 77 83 Resp 16 16 16 16 B/P (MAP) 166/56 147/89 Pulse Ox 96 94 97 94 O2 Delivery Nasal Cannula Nasal Cannula Nasal Cannula Nasal Cannula O2 Flow Rate 4 3.0 4 4.0 03/23/17 03/23/17 03/23/17 03/23/17 10:05 10:05 10:16 10:20 Temp 98.1 98.1 Pulse 76 76 Resp 16 16 16 18 B/P (MAP) 147/64 148/68 Pulse Ox 97 94 93 98 O2 Delivery Nasal Cannula Nasal Cannula Nasal Cannula Nasal Cannula O2 Flow Rate 4 4.0 3.0 3 03/23/17 03/23/17 03/23/17 03/23/17 10:35 11:00 11:15 11:30 Temp 96.3 96.3 Pulse 72 77 78 75 Resp 18 18 18 18 B/P (MAP) 163/64 156/74 (101) 158/85 (109) 163/69 (100) Pulse Ox 94 94 96 97 O2 Delivery Nasal Cannula Room Air Room Air Room Air O2 Flow Rate 3 03/23/17 12:07 Pulse Ox 98 O2 Delivery Nasal Cannula O2 Flow Rate 4.0 Intake and Output 03/23/17 03/23/17 03/24/17 15:00 23:00 07:00 Intake Total 1550 ml Balance 1550 ml JULIAN CAR MD Mar 23, 2017 12:37
[2017-03-23] MEDS ORDERED: METOCLOPRAMIDE HCL 10 MG/2 ML VIAL. IV PRN (13:15)
[2017-03-23] MEDS ORDERED: SIMETHICONE 80 MG TAB.CHEW PO PRN (13:15)
[2017-03-23] MEDS: hydrALAZINE 20 MG/ML VIAL. IVP PRN ×2 (13:20→15:28)
--- NOTE | 2017-03-23 14:56 | RAD ---
Portable chest, 03/23/2017: History: Shortness of breath Comparison is made to a study from 12/16/2012. The heart is mildly enlarged. The pulmonary vascularity is congested. There are mild parahilar opacities compatible with parahilar-perivascular pulmonary edema, more so on the right. No pleural fluid is evident. Mild spurring is present in the spine. IMPRESSION: Congestive heart failure with mild pulmonary edema.
[2017-03-23] MEDS: DOCUSATE SODIUM 100 MG CAPSULE. PO SCH (20:31)
[2017-03-24 03:00] VITALS: BP 142/64
[2017-03-24] MEDS: IV 1/2 NORMAL SALINE 1,000 ML IV SCH (05:49)
[2017-03-24] MEDS: ACETAMINOPHEN 325 MG TABLET. PO PRN ×2 (05:50→14:17)
[2017-03-24] MEDS: PANTOPRAZOLE 40 MG TABLET.DR. PO SCH (05:50)
[2017-03-24 05:52] LABS: BASO % 0 % (0-3); EOS % 0 % (0-3); HEMATOCRIT 30.4 % (36.0-47.0); HEMOGLOBIN 9.9 g/dL (12.0-15.5); LYMPH # 0.8 x10^3/uL (1.0-4.8); LYMPH % 6 % (24-48); MEAN CORPUSCULAR HEMOGLOBIN 30 pg (25-35); MEAN CORPUSCULAR HGB CONC 33 g/dL (31-37); MEAN CORPUSCULAR VOLUME 90 fL (79-100); MONO % 7 % (0-9); NEUT % 87 % (31-73); PLATELET COUNT 185 x10^3/uL (140-400); RED BLOOD COUNT 3.36 x10^6/uL (3.50-5.40); RED CELL DISTRIBUTION WIDTH 14.1 % (11.5-14.5); WHITE BLOOD COUNT 13.1 x10^3/uL (4.0-11.0)
[2017-03-24 06:20] LABS: ALBUMIN 2.5 g/dL (3.4-5.0); CALCIUM 8.4 mg/dL (8.5-10.1); CREATININE 0.8 mg/dL (0.6-1.0); DIRECT BILIRUBIN 0.2 mg/dL (0.0-0.2); GFR 86.3; POTASSIUM 3.6 mmol/L (3.5-5.1); TOTAL BILIRUBIN 0.5 mg/dL (0.2-1.0); TOTAL PROTEIN 6.9 g/dL (6.4-8.2)
[2017-03-24 07:00] VITALS: BP 136/66
[2017-03-24] MEDS ORDERED: ENOXAPARIN 40 MG/0.4 ML SYRINGE. SQ SCH ×2 (07:00→21:00)
[2017-03-24] MEDS: IPRATRPIUM/ALBUTEROL 0.5/2.5MG 3 ML NEBU. NEB SCH ×2 (07:37→11:36)
[2017-03-24 07:46] LABS: % BASOS 1 % (0-3); PLT ESTIMATE ADEQUATE (ADEQUATE)
[2017-03-24] MEDS: INSULIN ASPART 300 UNITS/3 ML INSULN.PEN SQ SCH ×2 (08:00→12:00)
--- NOTE | 2017-03-24 09:33 | PDOC ---
SHUN [employer] 03/24/17 0933: SURGICAL PROGRESS NOTE Subjective tolerating diet ambulating no n/v pain managed Vital Signs Vital Signs Date Time Temp Pulse Resp B/P (MAP) Pulse Ox O2 Delivery O2 Flow Rate FiO2 03/24/17 07:38 96 Nasal Cannula 3.0 03/24/17 03:00 98.1 69 18 142/64 (90) 98.1 General: Alert, Oriented X3, Cooperative, No acute distress Abdomen: Soft, Other (lap dressings c/d) Labs Laboratory Tests Test 03/22/17 10:32 03/22/17 16:18 03/23/17 04:08 03/23/17 07:07 Glucose (Fingerstick) 97 mg/dL (70-99) 95 mg/dL (70-99) 84 mg/dL (70-99) White Blood Count 8.4 x10^3/uL (4.0-11.0) Red Blood Count 3.45 x10^6/uL (3.50-5.40) Hemoglobin 10.3 g/dL (12.0-15.5) Hematocrit 31.8 % (36.0-47.0) Mean Corpuscular Volume 92 fL (79-100) Mean Corpuscular Hemoglobin 30 pg (25-35) Mean Corpuscular Hemoglobin Concent 32 g/dL (31-37) Red Cell Distribution Width 14.1 % (11.5-14.5) Platelet Count 184 x10^3/uL (140-400) Neutrophils (%) (Auto) 71 % (31-73) Lymphocytes (%) (Auto) 18 % (24-48) Monocytes (%) (Auto) 9 % (0-9) Eosinophils (%) (Auto) 2 % (0-3) Basophils (%) (Auto) 1 % (0-3) Neutrophils # (Auto) 6.0 x10^3uL (1.8-7.7) Lymphocytes # (Auto) 1.5 x10^3/uL (1.0-4.8) Monocytes # (Auto) 0.7 x10^3/uL (0.0-1.1) Eosinophils # (Auto) 0.2 x10^3/uL (0.0-0.7) Basophils # (Auto) 0.1 x10^3/uL (0.0-0.2) Sodium Level 141 mmol/L (136-145) Potassium Level 3.6 mmol/L (3.5-5.1) Chloride Level 107 mmol/L (98-107) Carbon Dioxide Level 29 mmol/L (21-32) Anion Gap 5 (6-14) Blood Urea Nitrogen 13 mg/dL (7-20) Creatinine 0.9 mg/dL (0.6-1.0) Estimated GFR (Cockcroft-Gault) 75.3 Glucose Level 92 mg/dL (70-99) Calcium Level 8.3 mg/dL (8.5-10.1) Test 03/23/17 09:03 03/24/17 04:35 Glucose (Fingerstick) 154 mg/dL (70-99) White Blood Count 13.1 x10^3/uL (4.0-11.0) Red Blood Count 3.36 x10^6/uL (3.50-5.40) Hemoglobin 9.9 g/dL (12.0-15.5) Hematocrit 30.4 % (36.0-47.0) Mean Corpuscular Volume 90 fL (79-100) Mean Corpuscular Hemoglobin 30 pg (25-35) Mean Corpuscular Hemoglobin Concent 33 g/dL (31-37) Red Cell Distribution Width 14.1 % (11.5-14.5) Platelet Count 185 x10^3/uL (140-400) Neutrophils (%) (Auto) 87 % (31-73) Lymphocytes (%) (Auto) 6 % (24-48) Monocytes (%) (Auto) 7 % (0-9) Eosinophils (%) (Auto) 0 % (0-3) Basophils (%) (Auto) 0 % (0-3) Neutrophils # (Auto) 11.4 x10^3uL (1.8-7.7) Lymphocytes # (Auto) 0.8 x10^3/uL (1.0-4.8) Monocytes # (Auto) 0.9 x10^3/uL (0.0-1.1) Eosinophils # (Auto) 0.0 x10^3/uL (0.0-0.7) Basophils # (Auto) 0.0 x10^3/uL (0.0-0.2) Segmented Neutrophils % 85 % (35-66) Band Neutrophils % 5 % (0-9) Lymphocytes % 4 % (24-48) Monocytes % 5 % (0-10) Basophils % 1 % (0-3) Platelet Estimate Adequate (ADEQUATE) Sodium Level 141 mmol/L (136-145) Potassium Level 3.6 mmol/L (3.5-5.1) Chloride Level 105 mmol/L (98-107) Carbon Dioxide Level 30 mmol/L (21-32) Anion Gap 6 (6-14) Blood Urea Nitrogen 12 mg/dL (7-20) Creatinine 0.8 mg/dL (0.6-1.0) Estimated GFR (Cockcroft-Gault) 86.3 Glucose Level 121 mg/dL (70-99) Calcium Level 8.4 mg/dL (8.5-10.1) Total Bilirubin 0.5 mg/dL (0.2-1.0) Direct Bilirubin 0.2 mg/dL (0.0-0.2) Aspartate Amino Transf (AST/SGOT) 27 U/L (15-37) Alanine Aminotransferase (ALT/SGPT) 23 U/L (14-59) Alkaline Phosphatase 91 U/L (46-116) Total Protein 6.9 g/dL (6.4-8.2) Albumin 2.5 g/dL (3.4-5.0) Laboratory Tests Test 03/24/17 04:35 White Blood Count 13.1 x10^3/uL (4.0-11.0) Red Blood Count 3.36 x10^6/uL (3.50-5.40) Hemoglobin 9.9 g/dL (12.0-15.5) Hematocrit 30.4 % (36.0-47.0) Mean Corpuscular Volume 90 fL (79-100) Mean Corpuscular Hemoglobin 30 pg (25-35) Mean Corpuscular Hemoglobin Concent 33 g/dL (31-37) Red Cell Distribution Width 14.1 % (11.5-14.5) Platelet Count 185 x10^3/uL (140-400) Neutrophils (%) (Auto) 87 % (31-73) Lymphocytes (%) (Auto) 6 % (24-48) Monocytes (%) (Auto) 7 % (0-9) Eosinophils (%) (Auto) 0 % (0-3) Basophils (%) (Auto) 0 % (0-3) Neutrophils # (Auto) 11.4 x10^3uL (1.8-7.7) Lymphocytes # (Auto) 0.8 x10^3/uL (1.0-4.8) Monocytes # (Auto) 0.9 x10^3/uL (0.0-1.1) Eosinophils # (Auto) 0.0 x10^3/uL (0.0-0.7) Basophils # (Auto) 0.0 x10^3/uL (0.0-0.2) Segmented Neutrophils % 85 % (35-66) Band Neutrophils % 5 % (0-9) Lymphocytes % 4 % (24-48) Monocytes % 5 % (0-10) Basophils % 1 % (0-3) Platelet Estimate Adequate (ADEQUATE) Sodium Level 141 mmol/L (136-145) Potassium Level 3.6 mmol/L (3.5-5.1) Chloride Level 105 mmol/L (98-107) Carbon Dioxide Level 30 mmol/L (21-32) Anion Gap 6 (6-14) Blood Urea Nitrogen 12 mg/dL (7-20) Creatinine 0.8 mg/dL (0.6-1.0) Estimated GFR (Cockcroft-Gault) 86.3 Glucose Level 121 mg/dL (70-99) Calcium Level 8.4 mg/dL (8.5-10.1) Total Bilirubin 0.5 mg/dL (0.2-1.0) Direct Bilirubin 0.2 mg/dL (0.0-0.2) Aspartate Amino Transf (AST/SGOT) 27 U/L (15-37) Alanine Aminotransferase (ALT/SGPT) 23 U/L (14-59) Alkaline Phosphatase 91 U/L (46-116) Total Protein 6.9 g/dL (6.4-8.2) Albumin 2.5 g/dL (3.4-5.0) Problem List Problems Medical Problems: (1) Abdominal pain Status: Acute (2) Cholecystitis Status: Acute Assessment/Plan s/p lap alexis ok to dc from surgical pov FU 2 weeks script on chart Problems: RUCHI CHASE MD 03/24/17 1143: SURGICAL PROGRESS NOTE Assessment/Plan Pt denies abd pain some light headed ness CXR concerning for CHF, will defer to hospitalist Problems: SHUN BRODY APRN Mar 24, 2017 09:33 RUCHI CHASE MD Mar 24, 2017 11:43
[2017-03-24] MEDS: DOCUSATE SODIUM 100 MG CAPSULE. PO SCH (10:12)
[2017-03-24] MEDS: OXYBUTYNIN CHLORIDE 5 MG TABLET PO SCH (10:12)
[2017-03-24 11:00] VITALS: BP 157/44
--- NOTE | 2017-03-24 11:35 | CARD ---
APPROVED REPORT EXAM: Two-dimensional and M-mode echocardiogram with Doppler and color Doppler. Other Information Quality : Average INDICATION Congestive Heart Failure 2D DIMENSIONS RVDd3.3 (2.9-3.5cm)Left Atrium(2D)4.2 (1.6-4.0cm) IVSd1.0 (0.7-1.1cm)Aortic Root(2D)3.0 (2.0-3.7cm) LVDd5.4 (3.9-5.9cm)LVOT Diameter1.8 (1.8-2.4cm) PWd1.1 (0.7-1.1cm)LVDs3.5 (2.5-4.0cm) FS (%) 34.8 %SV89.9 ml LVEF(%)63.5 (>50%) Aortic Valve AoV Peak Damaso.221.2cm/sAoV VTI47.4cm AO Peak GR.19.6mmHgLVOT Peak Damaso.171.1cm/s LVOT VTI 39.66cmAO Mean GR.12mmHg JULIANA (VMAX)1.31fv4GHI (VTI)1.85cm2 Mitral Valve MV E Mxstjohp097.3cm/sMV DECEL TNTG911oy MV A Nceqglhf40.2cm/sMV E Mean Gr.5mmHg MV YWK19uzF/A Ratio1.7 MV A Xcpyhrsb65rnUAO (PHT)5.46cm2 TDI E/Lateral E'10.7E/Medial E'14.5 Pulmonary Valve PV Peak Ajmvnpgl992.3cm/sPV Peak Grad.7mmHg RVOT VTI22.9cm Tricuspid Valve TR P. Kslzjvar124gq/sTR Peak Gr.69mmHg Pulmonary Vein S1 Vzrleqsk740.3cm/sD2 Utlozyqk49.2cm/s LEFT VENTRICLE The left ventricle is normal size. There is normal left ventricular wall thickness. The left ventricu lar systolic function is normal. The ejection fraction is estimated at 60-65%. There is normal LV seg mental wall motion. The left ventricular diastolic function and filling is normal for age. RIGHT VENTRICLE The right ventricle is normal size. There is normal right ventricular wall thickness. The right ventr icular systolic function is normal. ATRIA The left atrium size is normal. The right atrium size is normal. The interatrial septum is intact wit h no evidence for an atrial septal defect or patent foramen ovale as noted on 2-D or Doppler imaging. AORTIC VALVE The aortic valve is mildly calcified. Doppler and Color Flow revealed no significant aortic regurgita tion. There is no significant aortic valvular stenosis. MITRAL VALVE The mitral valve posterior leaflet is calcified. There is no mitral valve stenosis. Doppler and Color Flow revealed mild mitral regurgitation. TRICUSPID VALVE The tricuspid valve is normal in structure and function. Doppler and Color Flow revealed moderate tri cuspid regurgitation. The PA pressure was estimated at 72 mmHg. PULMONIC VALVE The pulmonary valve is normal in structure and function. Doppler and Color Flow revealed trace to mil d pulmonic valvular regurgitation. GREAT VESSELS The aortic root is normal in size. Normal pulmonary venous flow (Doppler). The IVC is normal in size and collapses >50% with inspiration. PERICARDIAL EFFUSION There is no pleural effusion. There is no evidence of significant pericardial effusion. Critical Notification Critical Value: No <Conclusion> The left ventricular systolic function is normal. The ejection fraction is estimated at 60-65%. There is normal LV segmental wall motion. Mild mitral regurgitation. Moderate tricuspid regurgitation. The PA pressure was estimated at 72 mmHg. There is no evidence of significant pericardial effusion.
--- NOTE | 2017-03-24 13:07 | PDOC3 ---
Discharge Summary [facility] Date of Admission: Mar 22, 2017 Discharge Date: Mar 24, 2017 Admitting Diagnosis acute cholecystitis s/p lap cholecystectomy 03/23 htn hld dm2 OA gerd heart murmur, moderate TR, EF 60% ckd3 orthostatic hypotension with lightheaded, HR increase >20 Problems: Final Diagnosis CONSULTS sx Procedures lab alexis Brief Hospital Course Patient is a 66 year old female who presents with complaints of low abdominal pain and low back pain since last night. Pt said never had similar pain before and no abd problem before. She started to have whole abd pain, moderate ,since last night, achy, intermittent, also has lower back pain, cannot tell me if the pain is radiating. no N/V, BM ok. no fever, chills, sob, chest pain, urinary problem ER ct SHOWED ACUTE alexis. Pt underwent lap cholecystectomy, had flatus, BM, eats ok. no abd pain. she c/o some lightheaded post sx when walking, bp ok but HR increase >20 when standing. Echo ok except TR, EF 60%. Pt required NC for 2days, now no chest pain or sob when off NC. dc home dc time 35min General: Alert, Cooperative, No acute distress Heart: Regular rate, Normal S1, Normal S2 Lungs: Clear Abdomen: Soft, Other (mild TTP RUQ, obese). sx wound clean. Extremities: No clubbing, No cyanosis Patient History: Problems: Disposition home CONDITION AT DISCHARGE: Improved Diet ada, low salt Scheduled Esomeprazole Magnesium (Nexium Capsule), 40 MG PO DAILYAC, (Reported) Oxybutynin Chloride (Oxybutynin Chloride), 5 MG PO BID, (Reported) Scheduled PRN Diphenhydramine Hcl (Benadryl), 2 CAP PO Q6HRS PRN for ITCHING Discontinued Medications Prednisone (Prednisone), 1 TAB PO DAILY Follow Up fu with sx in 2 weeks JULIAN CAR MD Mar 24, 2017 13:07
--- NOTE | 2017-03-24 13:56 | PATHOLOGY ---
PATHOLOGY REPORT * * * * * * * * FINAL DIAGNOSIS: Gallbladder, laparoscopic cholecystectomy: - Cholelithiasis. - Cholesterolosis, focal. - Chronic and focal acute cholecystitis with increased eosinophils. COMMENT: There is no evidence of malignancy. (JPM:mgciara; 03/24/2017) REPORT ELECTRONICALLY SIGNED BY: Bereket Cote M.D. DATE/TIME: 03/24/2017 13:56 * * * * * * * * GROSS PATHOLOGY: Received in formalin labeled "Chasity Floyd, gallbladder + contents," is a 9.4 x 4.2 x 2.7 cm, intact gallbladder with dark march to pink, wrinkled, and vascular serosal surfaces. Opening the gallbladder reveals dark green, velvety mucosa and an average wall thickness of 0.2 cm. Calculi are present, measuring 0.1-0.5 cm in maximum dimension, possessing a dark brown sludgy appearance, and feeling friable to the touch. No masses are noted grossly. Tractor Technician sections from the body and fundus are submitted along with the proximal margin in cassette A1. (TSD; 03/23/2017) INITIAL CPT CODE(S): A; 50692 Professional services [place] [address] Technical services performed by [facility] at [address] [place] [address], [facility] [address] [address]. SPECIMEN(S) RECEIVED: A.Gallbladder and contents CLINICAL HISTORY: Acute cholecystitis PATIENT: CHASITY FLOYD /AGE: 1105/09/1950 (Age: 66) PATIENT #: [id number] ALT CASE #: SPECIMEN COLLECTION DATE: 03/23/2017 SPECIMEN RECEIVED DATE: 03/23/2017 [facility] - [id number] [place] [address] - PHONE: [phone] * * * END OF REPORT * * *
== END 2017-03-24 15:35 | disposition home or self-care (01) | DRG 418 ==
LOC: ER 22:49 → 4 NORTH 03-22 02:50 → ER 03-22 04:31
PROVIDERS: ADMIT Internal Medicine; ATTEND Internal Medicine
PROC: BF121ZZ Fluoroscopy of Gallbladder using Low Osmolar Contrast (ICD-10-PCS; 2017-03-23)
PROC: 0FT44ZZ Resection of Gallbladder, Percutaneous Endoscopic Approach (ICD-10-PCS; principal; 2017-03-23 07:30)
DX: K80.00 Calculus of gallbladder with acute cholecystitis without obstruction (principal); Z68.42 Body mass index [BMI] 45.0-49.9, adult; E10.22 Type 1 diabetes mellitus with diabetic chronic kidney disease; N18.3 Chronic kidney disease, stage 3 (moderate); E66.01 Morbid (severe) obesity due to excess calories; E78.00 Pure hypercholesterolemia, unspecified; E78.5 Hyperlipidemia, unspecified; I12.9 Hypertensive chronic kidney disease with stage 1 through stage 4 chronic kidney disease, or unspecified chronic kidney disease; I95.1 Orthostatic hypotension; K21.9 Gastro-esophageal reflux disease without esophagitis; Z82.49 Family history of ischemic heart disease and other diseases of the circulatory system; Z90.710 Acquired absence of both cervix and uterus; M19.90 Unspecified osteoarthritis, unspecified site
CPT/HCPCS: 36415; 71010; 74176; 74300; 76705; 80048; 80053; 80076; 81001; 82962; 85007; 85025; 87086; 88304; 90686; 93306; 94640; 94760; 96361; 96374; 96375; J0360; J0690; J0780; J1100; J1644; J2250; J2270; J2405; J2543; J2704; J2710; J3010; J3490; J7030; J7613; J7620; Q9967; 99285-25; J2001